=== PATIENT | male | born 1995 ===

== ENCOUNTER 2019-11-07 17:43 | Emergency (ER) | payer SELFPAY ==
--- NOTE | 2019-11-07 18:17 | Emergency Department Report ---
ED Upper Extremity Inj HPI - General Chief Complaint: Extremity Injury, Upper Stated Complaint: RT SHOULDER DISLOCATED Time Seen by Provider: 11/07/19 18:00 Source: patient Mode of arrival: Ambulatory Limitations: No Limitations - History of Present Illness Initial Comments: Patient is a 24-year-old male that presents emergency room with complaints of l eft elbow pain. Patient states he fell on his front porch and he heard a snap with his left elbow. Patient states the pain is a 10 out of 10. Patient states the pain is worse with movement better with rest. Patient states his elbow has been deformed since the fall. Patient states his last intake was at noon. Patient denies past medical history. Patient denies allergies to medications. MD Complaint: Injury to:: left, elbow -: Sudden Other Extremity Injury: Elbow: Left Place: home Improves With: immobilization, rest Worsens With: movement of extremity Context: fall Associated Symptoms: heard/felt popping sensat. denies: weakness, numbness, neck pain, suspects foreign body, nausea/vomiting Treatments Prior to Arrival: bandage - Related Data Previous Rx's Medication Instructions Recorded Last Taken Type HYDROcodone/APAP 5-325 [[place] 1 each PO Q4HR PRN #10 tablet 11/07/19 Unknown Rx 5/325] Allergies Allergy/AdvReac Type Severity Reaction Status Date / Time No Known Allergies Allergy Unverified 11/07/19 17:45 ED Review of Systems ROS: Stated complaint: RT SHOULDER DISLOCATED Other details as noted in HPI Constitutional: denies: chills, fever Eyes: denies: eye pain, eye discharge, vision change ENT: denies: ear pain, throat pain Respiratory: denies: cough, shortness of breath, wheezing Cardiovascular: denies: chest pain, palpitations Endocrine: no symptoms reported Gastrointestinal: denies: abdominal pain, nausea, diarrhea Genitourinary: denies: urgency, dysuria Musculoskeletal: denies: back pain, joint swelling, arthralgia Skin: denies: rash, lesions Neurological: denies: headache, weakness, paresthesias Psychiatric: denies: anxiety, depression Hematological/Lymphatic: denies: easy bleeding, easy bruising ED Past Medical Hx - Past Medical History Previous Medical History?: No - Surgical History Past Surgical History?: No - Family History Family history: no significant - Social History Smoking Status: Never Smoker Substance Use Type: None - Medications Home Medications: Home Medications Medication Instructions Recorded Confirmed Last Taken Type HYDROcodone/APAP 5-325 [[place] 1 each PO Q4HR PRN #10 tablet 11/07/19 Unknown Rx 5/325] ED Physical Exam - General Limitations: No Limitations General appearance: alert, in no apparent distress - Head Head exam: Present: atraumatic, normocephalic - Eye Eye exam: Present: normal appearance, PERRL Pupils: Present: normal accommodation - ENT ENT exam: Present: mucous membranes moist - Neck Neck exam: Present: normal inspection - Respiratory Respiratory exam: Present: normal lung sounds bilaterally. Absent: respiratory distress, wheezes, rales - Cardiovascular Cardiovascular Exam: Present: regular rate, normal rhythm. Absent: systolic murmur, diastolic murmur, rubs, gallop - GI/Abdominal GI/Abdominal exam: Present: soft, normal bowel sounds. Absent: distended, tenderness, guarding - Rectal Rectal exam: Present: deferred - Extremities Exam Extremities exam: Present: normal inspection (except left elbow./ ), full ROM (Except upper ext), tenderness (To left elbow) - Back Exam Back exam: Present: normal inspection - Neurological Exam Neurological exam: Present: alert, oriented X3 - Psychiatric Psychiatric exam: Present: normal affect, normal mood - Skin Skin exam: Present: warm, dry, intact, normal color. Absent: rash ED Course Vital Signs 11/07/19 11/07/19 11/07/19 17:54 17:57 18:00 Temperature 98.2 F Pulse Rate 80 84 87 Pulse Rate [Pre -Procedure] Respiratory 11 L 16 16 Rate Respiratory Rate [Pre- Procedure] Blood Pressure 113/65 Blood Pressure [Pre-Procedure] Blood Pressure 114/69 [Right] O2 Sat by Pulse 98 99 100 Oximetry O2 Sat by Pulse Oximetry [Pre- Procedure] 11/07/19 11/07/19 11/07/19 18:05 18:15 18:21 Temperature 98.2 F Pulse Rate 87 104 H Pulse Rate [Pre -Procedure] Respiratory 16 11 L 16 Rate Respiratory Rate [Pre- Procedure] Blood Pressure 113/65 106/67 Blood Pressure [Pre-Procedure] Blood Pressure [Right] O2 Sat by Pulse 100 97 98 Oximetry O2 Sat by Pulse Oximetry [Pre- Procedure] 11/07/19 11/07/19 11/07/19 18:30 18:45 19:01 Temperature Pulse Rate 73 90 75 Pulse Rate [Pre -Procedure] Respiratory 12 12 12 Rate Respiratory Rate [Pre- Procedure] Blood Pressure 114/72 114/72 125/62 Blood Pressure [Pre-Procedure] Blood Pressure [Right] O2 Sat by Pulse 97 99 100 Oximetry O2 Sat by Pulse Oximetry [Pre- Procedure] 11/07/19 11/07/19 11/07/19 19:06 19:15 19:20 Temperature Pulse Rate 82 115 H Pulse Rate [Pre 77 -Procedure] Respiratory 17 20 Rate Respiratory 16 Rate [Pre- Procedure] Blood Pressure 121/85 Blood Pressure 118/77 [Pre-Procedure] Blood Pressure [Right] O2 Sat by Pulse 99 Oximetry O2 Sat by Pulse 99 Oximetry [Pre- Procedure] 11/07/19 11/07/19 11/07/19 19:22 19:30 19:45 Temperature Pulse Rate 78 98 H Pulse Rate [Pre -Procedure] Respiratory 17 15 Rate Respiratory Rate [Pre- Procedure] Blood Pressure 128/62 128/62 Blood Pressure [Pre-Procedure] Blood Pressure [Right] O2 Sat by Pulse 100 100 Oximetry O2 Sat by Pulse Oximetry [Pre- Procedure] 11/07/19 11/07/19 20:00 20:15 Temperature Pulse Rate 92 H 98 H Pulse Rate [Pre -Procedure] Respiratory 19 17 Rate Respiratory Rate [Pre- Procedure] Blood Pressure 129/64 122/71 Blood Pressure [Pre-Procedure] Blood Pressure [Right] O2 Sat by Pulse 99 96 Oximetry O2 Sat by Pulse Oximetry [Pre- Procedure] - Reevaluation(s) Reevaluation #1: Consent done. Patient agrees to procedures. Patient have moderate sedation. Respiratory is at bedside and capnography and oxygen have been set up. Patient's vital signs are stable. 11/07/19 18:50 Reevaluation #2: Elbow reduced. Patient tolerated procedure without difficulty. We will continue to monitor patient's blood pressure and vital signs. 11/07/19 19:05 Reevaluation #3: Patient able to answer questions. Patient moving his left elbow. 11/07/19 19:10 Reevaluation #4: Patient more awake. Patient answering questions appropriately. 11/07/19 19:22 Reevaluation #5: Patient states the pain is better. Patient answering questions appropriately. 11/07/19 19:52 Patient ambulatory in ER. Patient tolerated p.o. fluids. Patient answering questions appropriately. I discussed all results with patient. I discussed plan of care with patient. Patient agrees with plan of care. Patient will be discharged home. Patient stable for discharge. Patient given discharge instructions. Patient voiced understanding of discharge instructions. 11/07/19 20:39 - Moderate Sedation Indications: fracture/dislocation redu ASA Class: I Mallampati Airway Score: 1 Time of Last PO Intake: 12:00 Preparation: radiation monitor applied, pulse oximeter, capnometry used, supplemental O2 applied, suction/airway equipment at bedside, IV secured IV Propofol Dose (mgs): 70 IV Etomidate Dose (mgs): 6.6 Complications: none Patient Tolerated Procedure: well, no complications - Orthopedic Joint Reduction Joint #1 Consent Obtained: verbal consent, written consent, emergent situation Time Out Performed: Yes Side: left Joint Reduction Location: elbow Analgesia: moderate sedation Shoulder Technique Used (if applicable): traction/counter-traction Technique Used: traction/counter-traction Post-Reduction Neuro Exam: intact, no change Post-Reduction Vascular Exam: intact, no change Post Reduction X-Ray Obtained: Yes Post Reduction X-Ray Results: reduced Splint Applied: No Patient Tolerated Procedure: well, no complications ED Medical Decision Making - Radiology Data Radiology results: report reviewed, image reviewed interpreted by me: First x-ray shows a dislocation of the left elbow. Second x-ray shows satisfactory reduction of the left elbow. - Medical Decision Making Patient is a 24-year-old male that presents emergency room with complaints of left elbow pain and deformity. Patient had an initial x-ray done which showed a dislocation of the left elbow. Patient had moderate sedation along with a reduction. Patient had a reduction without complications. Patient had a postreduction film done which showed a satisfactory reduction of the left elbow. No fractures noted on either x-ray. Patient was monitored for adequate amount of time for the patient to return to baseline. Patient was ambulatory in the ER and answering all questions appropriately. Patient was given discharge instructions. Patient was stable for discharge. - Differential Diagnosis Elbow pain, dislocation, strain, sprain, fracture Critical Care Time: Yes Critical care time in (mins) excluding proc time.: 55 Critical care attestation.: If time is entered above; I have spent that time in minutes in the direct care of this critically ill patient, excluding procedure time. Critical Care Time: 55 minutes ED Disposition Clinical Impression: Elbow pain, left Dislocation of left elbow Qualifiers: Encounter type: initial encounter Qualified Code(s): S53.105A - Unspecified dislocation of left ulnohumeral joint, initial encounter Disposition: TO HOME OR SELFCARE Is pt being admited?: No Does the pt Need Aspirin: No Condition: Stable Instructions: Moderate Sedation (ED), Elbow Dislocation (ED) Additional Instructions: Patient to follow-up with primary care in 2 to 3 days. Patient to follow-up with orthopedist in 2 to 3 days. Patient to avoid strenuous exercise, work or any activities until cleared by orthopedist. Patient to rest. Patient to elevate limb. Patient to remain in the sling except for when in bed. Patient to take Tylenol or ibuprofen as needed for pain. Prescriptions: HYDROcodone/APAP 5-325 [[place] 5/325] 1 each PO Q4HR PRN #10 tablet PRN Reason: Pain Referrals: LIANNA NINO MD [Staff Physician] - 2-3 Days Time of Disposition: 20:43
[2019-11-07] MEDS ORDERED: propofoL 200 MG/20 ML VIAL IV ONE ×2 (18:41→18:43)
[2019-11-07] MEDS ORDERED: ETOMIDATE 20 MG/10 ML INJ IV ONE (18:41)
[2019-11-07] MEDS ORDERED: SODIUM CHLORIDE 0.9% 1000 ML 1,000 ML IV ONE (18:41)
--- NOTE | 2019-11-07 18:54 | XRay Report ---
LEFT ELBOW 2 VIEWS INDICATION / CLINICAL INFORMATION: pain. poss dislocation COMPARISON: None available. FINDINGS: BONES / JOINT(S): There is dislocation of the elbow joint. There is some mild cortical irregularity i n the radial head raising the possibility of a nondisplaced fracture but I cannot prove that definiti vely. No other fractures are seen. No significant arthritis. SOFT TISSUES: No significant abnormality. ADDITIONAL FINDINGS: None. Signer Name: Rd Bruno MD Signed: 11/07/2019 6:50 PM Workstation Name: [id number]
--- NOTE | 2019-11-07 19:47 | XRay Report ---
LEFT ELBOW ONE VIEW INDICATION / CLINICAL INFORMATION: post reduction COMPARISON: None available. FINDINGS: Lateral view of the elbow was obtained. This is a post reduction radiograph. The elbow appears reloca macario on this lateral view. No discrete fracture is identified on this single view. Signer Name: Rd Bruno MD Signed: 11/07/2019 7:43 PM Workstation Name: [id number]
[2019-11-07 20:16] VITALS: BP 122/71
[2019-11-07] MEDS ORDERED: KETOROLAC 30 MG/1 ML INJ IV ONE (20:42)
== END 2019-11-07 20:59 | disposition home or self-care (01) ==
LOC: ED 17:43
DX: S53.105A Unspecified dislocation of left ulnohumeral joint, initial encounter (principal); Z79.899 Other long term (current) drug therapy; W18.39XA Other fall on same level, initial encounter; Y93.89 Activity, other specified; Y92.89 Other specified places as the place of occurrence of the external cause; Y99.8 Other external cause status
CPT/HCPCS: 24600; 73070; 94760; 96374; 99284; J2704; J7030; J1885

== ENCOUNTER 2019-11-28 19:19 | Emergency (ER) | payer SELFPAY ==
[2019-11-28 21:17] VITALS: BP 130/75
--- NOTE | 2019-11-28 21:28 | Emergency Department Report ---
ED ENT HPI - General Chief complaint: Skin/Abscess/Foreign Body Stated complaint: FACE/NECK SWOLLEN Time Seen by Provider: 11/28/19 21:19 Source: patient Mode of arrival: Ambulatory Limitations: No Limitations - History of Present Illness Initial comments: 24 y o male presents with dental pain right sided swelling x pain no bleeding MD complaint: tooth pain - Related Data Previous Rx's Medication Instructions Recorded Last Taken Type HYDROcodone/APAP 5-325 [[place] 1 each PO Q4HR PRN #10 tablet 11/07/19 Unknown Rx 5/325] Clindamycin [Clindamycin CAP] 300 mg PO Q8H #21 cap 11/28/19 Unknown Rx Ibuprofen [Motrin] 800 mg PO Q8HR #30 tablet 11/28/19 Unknown Rx Allergies Allergy/AdvReac Type Severity Reaction Status Date / Time No Known Allergies Allergy Unverified 11/07/19 17:45 ED Dental HPI - General Chief complaint: Skin/Abscess/Foreign Body Stated complaint: FACE/NECK SWOLLEN Time Seen by Provider: 11/28/19 21:19 Source: patient Mode of arrival: Ambulatory Limitations: No Limitations - Related Data Previous Rx's Medication Instructions Recorded Last Taken Type HYDROcodone/APAP 5-325 [[place] 1 each PO Q4HR PRN #10 tablet 11/07/19 Unknown Rx 5/325] Clindamycin [Clindamycin CAP] 300 mg PO Q8H #21 cap 11/28/19 Unknown Rx Ibuprofen [Motrin] 800 mg PO Q8HR #30 tablet 11/28/19 Unknown Rx Allergies Allergy/AdvReac Type Severity Reaction Status Date / Time No Known Allergies Allergy Unverified 11/07/19 17:45 ED Review of Systems ROS: Stated complaint: FACE/NECK SWOLLEN Other details as noted in HPI Comment: All other systems reviewed and negative ED Past Medical Hx - Past Medical History Previous Medical History?: No - Surgical History Past Surgical History?: No - Social History Smoking Status: Never Smoker Substance Use Type: None - Medications Home Medications: Home Medications Medication Instructions Recorded Confirmed Last Taken Type HYDROcodone/APAP 5-325 [[place] 1 each PO Q4HR PRN #10 tablet 11/07/19 Unknown Rx 5/325] Clindamycin [Clindamycin CAP] 300 mg PO Q8H #21 cap 11/28/19 Unknown Rx Ibuprofen [Motrin] 800 mg PO Q8HR #30 tablet 11/28/19 Unknown Rx ED Physical Exam - General Limitations: No Limitations General appearance: alert, in no apparent distress - Head Head exam: Present: atraumatic, normocephalic - Eye Eye exam: Present: normal appearance - ENT ENT exam: Present: mucous membranes moist - Neck Neck exam: Present: normal inspection - Respiratory Respiratory exam: Present: normal lung sounds bilaterally. Absent: respiratory distress - Cardiovascular Cardiovascular Exam: Present: regular rate, normal rhythm. Absent: systolic murmur, diastolic murmur, rubs, gallop - GI/Abdominal GI/Abdominal exam: Present: soft, normal bowel sounds - Rectal Rectal exam: Present: deferred - Extremities Exam Extremities exam: Present: normal inspection - Back Exam Back exam: Present: normal inspection - Neurological Exam Neurological exam: Present: alert, oriented X3 - Psychiatric Psychiatric exam: Present: normal affect, normal mood - Skin Skin exam: Present: warm, dry, intact, normal color. Absent: rash ED Course Vital Signs 11/28/19 21:15 Temperature 98.3 F Pulse Rate 65 Respiratory 18 Rate Blood Pressure 130/75 O2 Sat by Pulse 100 Oximetry Critical care attestation.: If time is entered above; I have spent that time in minutes in the direct care of this critically ill patient, excluding procedure time. ED Disposition Clinical Impression: Dental abscess, Pain, dental Disposition: DC- TO HOME OR SELFCARE Is pt being admited?: No Does the pt Need Aspirin: No Condition: Stable Instructions: Toothache (ED), Dental Caries (ED), Dental Abscess (ED) Additional Instructions: Make sure to follow up with the primary care physician as discussed. Take all your medications as you've been prescribed. If you have any worsening symptoms or develop new symptoms please return to ED immediately. Prescriptions: Clindamycin [Clindamycin CAP] 300 mg PO Q8H #21 cap Ibuprofen [Motrin] 800 mg PO Q8HR #30 tablet Referrals: PRIMARY CARE,MD [Primary Care Provider] - 3-5 Days [facility] [Outside] - 3-5 Days [facility] [Outside] - 3-5 Days Forms: Accompanied Note, Work/School Release Form(ED) Time of Disposition: 21:53
== END 2019-11-28 21:30 | disposition home or self-care (01) ==
LOC: ED 19:19
DX: K04.7 Periapical abscess without sinus (principal); Z79.1 Long term (current) use of non-steroidal anti-inflammatories (NSAID); Z79.899 Other long term (current) drug therapy
CPT/HCPCS: 99282